=== PATIENT | female | born 1945 | race Two or more races ===

== ENCOUNTER 2019-12-18 06:14 | Day surgery (SDC) | payer OTHER ==
[~2019-12-18 06:14] MED LIST: NORVASC5 MG PO; TORADOL10 MG; TRICOR48 MG PO; [UNRECOGNIZED DRUG - OTHER]
== END 2019-12-18 10:35 | disposition home or self-care (01) ==
LOC: AMB-ENDOS 06:14
PROVIDERS: ATTEND Colon & Rectal Surgery
DX: D12.2 Benign neoplasm of ascending colon (principal); Z20.828 Contact with and (suspected) exposure to other viral communicable diseases